=== PATIENT | female | born 1980 | race Caucasian/White ===

== ENCOUNTER → 2019-12-12 | Outpatient (CLI) | payer BC, OTHER ==
[~2019-12-12] MED LIST: CELEXA 20 MG TA20 MG; DOLGIC PLUS TA1 EACH; ESTRACE1 MG; NORCO 5-325 TA1 EACH PO; TOPAMAX50 MG; ZOFRAN 4 MG ORAL4 M1 DIS; ZOMIG ZMT5 MG
== END ==
LOC: ULTRA 10:27
PROVIDERS: ATTEND Neuromusculoskeletal Medicine & OMM
DX: K76.0 Fatty (change of) liver, not elsewhere classified (principal); R16.0 Hepatomegaly, not elsewhere classified; R14.0 Abdominal distension (gaseous); R10.9 Unspecified abdominal pain

== ENCOUNTER → 2021-02-27 | Outpatient (CLI) | payer BC, OTHER | LOC: RAD 13:49 | PROVIDERS: ATTEND Neuromusculoskeletal Medicine & OMM | DX: Z12.31 Encounter for screening mammogram for malignant neoplasm of breast (principal) ==